=== PATIENT | male | born 1985 | race Caucasian/White ===

== ENCOUNTER 2023-01-30 22:20 | Emergency (ER) | payer SELFPAY ==
[~2023-01-30] VITALS: Ht 180.3 cm; Wt 65.0 kg
[2023-01-30 22:47] VITALS: O2SAT 97
[2023-01-30] MEDS ORDERED: MORPHINE SULFATE 4 MG/ML CPJ (NOT FOR IM USE) IV ONE (23:30)
[2023-01-30] MEDS ORDERED: ONDANSETRON HCL 4MG/2ML INJ IV ONE (23:30)
[2023-01-31] MEDS ORDERED: KETOROLAC 30MG/ML VIAL IV ONE (01:00)
[2023-01-31] MEDS ORDERED: IBUP-2028 MT (01:53)
[2023-01-31] MEDS ORDERED: MORP15TA67 MT (01:53)
[2023-01-31] MEDS ORDERED: TOPUD PO (01:53)
[2023-01-31 02:30] VITALS: BP 128/71; PULSE 72; RESP 12; TEMP 98.3
== END 2023-01-31 03:44 | disposition home or self-care (01) ==
LOC: ER 22:20
DX: S82.201A Unspecified fracture of shaft of right tibia, initial encounter for closed fracture (principal); J45.909 Unspecified asthma, uncomplicated; X58.XXXA Exposure to other specified factors, initial encounter; Y93.89 Activity, other specified; Y92.89 Other specified places as the place of occurrence of the external cause; Y99.8 Other external cause status
CPT/HCPCS: 73590; 96374; 96375; 99284; J2405; J2270 ×2; Z7610 ×4; J1885